=== PATIENT | female | born 1995 | race Caucasian/White ===

== ENCOUNTER 2016-10-03 21:36 | Emergency (ER) | payer BC ==
--- NOTE | 2016-10-03 21:46 | EDPHY ---
H & P Time Seen by Provider: 10/03/16 21:41 HPI/ROS: CHIEF COMPLAINT: LSD ingestion HISTORY OF PRESENT ILLNESS: 21-year-old female unknown name arrives via ambulance after ingesting LSD and a "bad acid trip" . She has no complaints of pain or discomfort. There are no reports of trauma. Difficult to obtain history on this patient secondary to her repeating "I'm Harris and I'm all good" over and over. PRIMARY CARE PROVIDER: unknown REVIEW OF SYSTEMS: review of systems is limited at initial evaluation PAST MEDICAL & SURGICAL HISTORY: son no past medical history SOCIAL HISTORY: positive LSD PHYSICAL EXAM (Prior to examination, patient consented to physical exam, hands were washed and my usual and customary physical exam procedures followed) 1) GENERAL: Well-developed, well-nourished, alert, yelling, screaming, texting on her phone 2) HEAD: Normocephalic, atraumatic 3) HEENT: Pupils equal, round, reactive to light bilaterally. Sclera anicteric. No raccoon eyes no Sprague sign no rhinorrhea no otorrhea no hemotympanum 4) NECK: Full range of motion, no meningeal signs. 5) LUNGS: Clear auscultation bilaterally, no wheezes, no rhonchi, no retractions. 6) HEART: Regular rate and rhythm, no murmur, no heave, no gallop. 7) ABDOMEN: No guarding, no rebound, no focal tenderness, 8) MUSCULOSKELETAL: No peripheral edema or discoloration. 9) BACK: no visual or palpable abnormality. 10) SKIN: No rash, no petechiae. 11) Psychiatric: Patient is oriented X 3, there is no agitation. DIFFERENTIAL DIAGNOSIS: in no particular include but limited to LSD use, polysubstance abuse, alcohol use, head trauma (Monisha Garcia Cherrie) Constitutional: Initial Vital Signs Temperature (C) 36 C 10/03/16 21:48 Heart Rate 103 H 10/03/16 21:48 Respiratory Rate 18 10/03/16 21:48 Blood Pressure 131/69 H 10/03/16 21:48 O2 Sat (%) 95 10/03/16 21:48 O2 Delivery Mode Room Air Allergies/Adverse Reactions: Unable to Assess Allergy (Unverified 10/03/16 21:48) Home Medications: Medication Instructions Recorded Unobtainable 10/03/16 MDM/Departure - MDM Medications Given: Discontinued Medications Haloperidol Lactate (Haldol Injection) 10 mg IM EDNOW ONE Stop: 10/03/16 21:50 Last Admin: 10/03/16 22:09 Dose: 10 mg Lorazepam (Ativan Injection) 2 mg IM EDNOW ONE Stop: 10/03/16 21:50 Last Admin: 10/03/16 22:09 Dose: 2 mg ED Course/Re-evaluation: PHYSICIAN DOCUMENTATION: The patient was evaluated and managed by the Physician Field Service Technician Poultry and myself. I have reviewed the chart and agree with the findings and plan of care as documented. In addition, I examined the patient myself at 2145. History confirmed that she was found wandering. Physical findings as follows: screaming and texting. Verbally abusive and combative despite reassurance and 1 on 1. Received 10 mg IM Versed prior to arrival. Ordered 10 mg IM Haldol and 2 mg IM Ativan for excited delirium and agitation, for patient and staff safety and to facilitate proper emergency department evaluation. Likely adverse reaction to LSD. Plan for serial observation until she is clinically stable. I am the secondary supervising physician. (Champ Friedman) 11:20 p.m.: Patient's mother at bedside, visiting from out of town. Mother feels comfortable taking the patient back to her hotel. Patient will continue to be observed in the ER for period of time and mother will take her home. (Monisha Garcia) - Depart Disposition: Home, Routine, Self-Care Clinical Impression: LSD reaction Condition: Good Instructions: Polysubstance Abuse (ED) Referrals: Villa Ashford MD [Medical Doctor] - 1-2 days without fail
[2016-10-03] MEDS ORDERED: HALOPERIDOL LACT 5 MG/ML INJ IM ONE (21:49)
[2016-10-03] MEDS ORDERED: LORazepam 2 MG/ML INJ IM ONE (21:49)
[2016-10-03] MEDS ORDERED: LORazepam 2 MG/ML INJ ONE (21:51)
[2016-10-03 22:14] LABS: % IMMATURE GRANULYOCYTES 0.4 % (0.0-1.1); ABSOLUTE IMMATURE GRANULOCYTES 0.04 10^3/uL (0.00-0.10); ADD DIFF? NO; ADD MORPH? NO; ADD SCAN? YES; ATYPICAL LYMPHOCYTE FLAG 40 (0-99); FRAGMENT RBC FLAG 0 (0-99); HEMATOCRIT 35.5 % (38.0-47.0); HEMOGLOBIN 12.2 g/dL (12.6-16.3); LEFT SHIFT FLG 0 (0-99); LIPEMIA HEMOLYSIS FLAG 90 (0-99); MEAN CELL HEMOGLOBIN 30.9 pg (27.9-34.1); MEAN CELL HEMOGLOBIN CONCENTR. 34.4 g/dL (32.4-36.7); MEAN CELL VOLUME 89.9 fL (81.5-99.8); MEAN PLATELET VOLUME 11.4 fL (8.7-11.7); PLATELET CLUMPS FLAG 0 (0-99); PLATELET COUNT 197 10^3/uL (150-400); RED BLOOD CELL COUNT 3.95 10^6/uL (4.18-5.33); RED CELL DISTRIBUTION WIDTH 12.4 % (11.5-15.2)
[2016-10-03 22:48] LABS: SCAN NEGATIVE
[2016-10-03 22:57] LABS: ANION GAP 15 mEq/L (8-16); CALCIUM 9.5 mg/dL (8.5-10.4); CARBON DIOXIDE 16 mEq/l (22-31); CHLORIDE 108 mEq/L (97-110); ETHANOL SERUM < 10 mg/dL (0-10); GLOMERULAR FILTRATION RATE > 60; GLUCOSE 197 mg/dL (70-100); POTASSIUM 3.8 mEq/L (3.5-5.2); SODIUM 139 mEq/L (134-144)
[2016-10-03 23:21] LABS: CK-MB INTERPRETATION NEGATIVE (NEGATIVE); CREATINE KINASE-MB FRACTION 1.32 ng/mL (0-3.19)
[2016-10-03 23:47] VITALS: PULSE 78; O2SAT 96
[2016-10-04 00:25] VITALS: BP 128/76; RESP 16; TEMP 98.1
== END 2016-10-04 00:54 | disposition home or self-care (01) ==
LOC: EDBD 21:36
DX: F16.10 Hallucinogen abuse, uncomplicated (principal)
CPT/HCPCS: 82947-QW; G0480; J2060